=== PATIENT | male | born 1990 | race Caucasian/White ===

== ENCOUNTER 2017-04-18 01:39 | Emergency (ER) | payer MEDICAID ==
[~2017-04-18] VITALS: Ht 172.7 cm; Wt 77.3 kg
[2017-04-18 01:43] VITALS: TEMP 97.6
[2017-04-18] MEDS ORDERED: NORCO 325 MG-51 TAB PO (02:40)
[2017-04-18 03:00] LABS: PH 5 (5-8); URINE APPEARANCE Clear; URINE BILIRUBIN Negative (NEGATIVE); URINE BLOOD Negative (NEGATIVE); URINE COLOR Yellow; URINE GLUCOSE Negative (NEGATIVE); URINE KETONE Negative (NEGATIVE); URINE UROBILINOGEN Negative (NEGATIVE)
[2017-04-18 03:01] LABS: URINE RBC 0-2 /hpf; URINE WBC 0-2 /hpf
[2017-04-18 03:08] VITALS: BP 116/83; PULSE 48
== END 2017-04-18 03:10 | disposition home or self-care (01) ==
LOC: COL.ER 01:39
PROVIDERS: Physician Assistant
DX: S30.22XA Contusion of scrotum and testes, initial encounter (principal); W50.1XXA Accidental kick by another person, initial encounter; Y92.39 Other specified sports and athletic area as the place of occurrence of the external cause
CPT/HCPCS: J1885

== ENCOUNTER 2017-10-18 20:21 | Emergency (ER) | payer MEDICAID ==
[~2017-10-18] VITALS: Ht 172.7 cm; Wt 77.3 kg
[~2017-10-18 20:21] MED LIST: NORCO 325 MG-51 TAB PO
[2017-10-18 20:28] VITALS: BP 125/74; TEMP 97.4
[2017-10-18] MEDS ORDERED: POLYMYXIN B/TRIMETH OD (22:18)
[2017-10-18 22:26] VITALS: PULSE 60
== END 2017-10-18 22:28 | disposition home or self-care (01) ==
LOC: COL.ER 20:21
DX: T15.92XA Foreign body on external eye, part unspecified, left eye, initial encounter (principal); X58.XXXA Exposure to other specified factors, initial encounter; Y93.02 Activity, running

== ENCOUNTER 2017-12-10 21:15 | Emergency (ER) | payer MEDICAID ==
[~2017-12-10] VITALS: Ht 172.7 cm; Wt 75.0 kg
[~2017-12-10 21:15] MED LIST changes: +POLYMYXIN B/TRIMETH OD
[2017-12-10 21:17] VITALS: BP 129/72; PULSE 89
[2017-12-10] MEDS ORDERED: PERCOCET 325 MG1 TA2 PO (22:22)
[2017-12-10] MEDS ORDERED: ZOFRAN 4MG T4 MG/TAB PO (22:22)
== END 2017-12-10 22:47 | disposition home or self-care (01) ==
LOC: COL.ER 21:15
DX: S06.0X0A Concussion without loss of consciousness, initial encounter (principal); S02.32XA Fracture of orbital floor, left side, initial encounter for closed fracture; S02.2XXA Fracture of nasal bones, initial encounter for closed fracture; W50.0XXA Accidental hit or strike by another person, initial encounter; Y93.71 Activity, boxing; Y92.39 Other specified sports and athletic area as the place of occurrence of the external cause
CPT/HCPCS: J2550